=== PATIENT | male | born 1950 | race Caucasian/White ===

== ENCOUNTER → 2019-10-07 07:31 | Outpatient (CLI) | payer MEDICARE, OTHER, SELFPAY ==
--- NOTE | 2019-10-07 07:35 | CT_ITS ---
STUDY: CT MAXILLOFACIAL SINUSES REASON FOR EXAM: Male, 69 years old. EAR PRESSURE AND SINUSITIS. RADIATION DOSAGE (If Supplied By Facility): CTDIvol = ( 33.06 ) mGy, DLP = ( 829.72 ) mGycm TECHNIQUE: The patient was scanned in a multi detector CT scanner. High resolution axial imaging was performed without the administration of intravenous contrast material. Sagittal and coronal images were reconstructed. Individualized dose optimization techniques were used for this CT. COMPARISON: None. FINDINGS: FRONTAL SINUSES: Normal aeration, without mucosal inflammatory disease. ETHMOIDAL SINUSES: Normal aeration, without mucosal inflammatory disease. MAXILLARY SINUSES: There is 1.2 cm right inferior right maxillary sinus mucous retention cyst/polyp. There is 1.2 and 1.3 cm mucous retention cyst/polyp at the inferior left maxillary sinus. Otherwise normal aeration, without mucosal inflammatory disease. SPHENOIDAL SINUSES: Normal aeration, without mucosal inflammatory disease. There is patency of the bilateral maxillary infundibuli with normal uncinate processes, ethmoid bullae, and hiatus semilunaris. There is a small walter bullosa of the right middle turbinate. Normal bilateral inferior turbinates. Normal midline nasal septum. There is patency of the bilateral nasal airways. The visualized osseous structures are normal. The visualized bilateral orbital contents are normal. CT/Sinus/Facial Bone IMPRESSION: Small maxillary sinus mucous retention cysts/polyps. Otherwise clear sinuses. Electronically Signed: Destiney Moore MD at 15:58 EST Tel , Service support ,
== END ==
PROVIDERS: Family Provider Family Medicine; PCP Family Medicine; Referring Provider Otolaryngology Otolaryngology/Facial Plastic Surgery; Visit Provider Otolaryngology Otolaryngology/Facial Plastic Surgery
DX: J32.9 Chronic sinusitis, unspecified (principal)
CPT/HCPCS: 70486